=== PATIENT | female | born 1970 | race Two or more races ===

== ENCOUNTER 2019-03-21 05:31 | Inpatient (IN) | payer BC ==
[2019-03-21] MEDS ORDERED: ROPIVACAINE 0.5 % 30 ML VIAL (07:31)
[2019-03-21] MEDS ORDERED: ONDANSETRON 4 MG INJ (07:31)
[2019-03-21] MEDS ORDERED: METOCLOPRAMIDE 10 MG INJ (07:31)
[2019-03-21] MEDS ORDERED: PROPOFOL 20 ML (07:31)
[2019-03-21] MEDS ORDERED: MIDAZOLAM 1 MG/ML 2 ML INJ (07:31)
[2019-03-21] MEDS ORDERED: ROCURONIUM 50 MG INJ ×2 (07:31→08:33)
[2019-03-21] MEDS ORDERED: CEFAZOLIN 1 GM INJ (07:31)
[2019-03-21] MEDS ORDERED: METOPROLOL 5 MG INJ (07:50)
[2019-03-21] MEDS ORDERED: FENTAnyl 50 MCG/ML VIAL IV ×3 (08:00)
[2019-03-21] MEDS ORDERED: LABETALOL HCL 20MG INJ IV (08:00)
[2019-03-21] MEDS ORDERED: HYDROmorphONE 1 MG/5 ML IV SYRINGE IV (08:00)
[2019-03-21] MEDS ORDERED: KETOROLAC 30 MG INJ IV (08:00)
[2019-03-21] MEDS ORDERED: DIPHENHYDRAMINE 50 MG INJ IV (08:00)
[2019-03-21] MEDS ORDERED: FENTAnyl 50 MCG/ML VIAL (08:50)
[2019-03-21] MEDS ORDERED: KETOROLAC 30 MG INJ (09:11)
[2019-03-21] MEDS: ONDANSETRON 4 MG INJ IV ×3 (09:38→23:48)
[2019-03-21] MEDS: MEPERIDINE 25 MG INJ IV (09:38)
[2019-03-21] MEDS: CEFAZOLIN 2 GM/50 ML (PMX) 50 ML IVPB (09:40)
[2019-03-21] MEDS: SOD CHLORIDE 0.9% 1,000 ML IV (09:43)
[2019-03-21] MEDS: hydrALAzine 20 MG INJ IV (09:46)
[2019-03-21] MEDS: HYDROmorphONE 1 MG/5 ML IV SYRINGE IV ×2 (09:59→10:12)
[2019-03-21] MEDS ORDERED: HYDROmorphONE 2 MG/ML SYG IV (10:00)
[2019-03-21] MEDS: LACTATED RINGER'S 1,000 ML IV ×3 (15:09→23:35)
[2019-03-21] MEDS: HYDROmorphONE 1 MG/ML SYG IV ×2 (15:10→23:50)
[2019-03-22] MEDS: ONDANSETRON 4 MG INJ IV (05:00)
[2019-03-22] MEDS: HYDROmorphONE 1 MG/ML SYG IV (05:02)
[2019-03-22 05:26] LABS: ADD MAN DIFF? NO
[2019-03-22 05:30] LABS: WHITE BLOOD COUNT 11.6 10^3/ul (4.8-10.8)
[2019-03-22 05:30] LABS: BASOPHILS % 0.2 % (0.0-2.0); EOSINOPHILS % 0.1 % (0.0-7.0); HEMATOCRIT 31.9 % (37.0-47.0); HEMOGLOBIN 10.8 g/dl (12.0-16.0); LYMPHOCYTES # 1.2 10^3/ul (0.8-2.9); LYMPHOCYTES % 10.5 % (15.0-51.0); MEAN CORPUSCULAR HGB CONC 33.9 g/dl (32.0-37.0); MEAN CORPUSCULAR VOLUME 85.5 fl (82.0-101.0); MEAN PLATELET VOLUME 10.3 fl (7.4-10.4); MONOCYTES % 8.7 % (0.0-11.0); NEUTROPHIL # 9.3 10^3/ul (1.6-7.5); NEUTROPHILS % 80.1 % (39.0-77.0); PLATELET COUNT 193 10^3/UL (140-415); RED BLOOD COUNT 3.73 10^6/ul (4.20-5.40); RED CELL DISTRIBUTION WIDTH 12.5 % (11.5-14.5)
[2019-03-22 05:42] LABS: ALANINE AMINOTRANSFERASE 48 IU/L (13-69); ALBUMIN 3.6 g/dl (3.3-4.9); ALBUMIN/GLOBULIN RATIO 1.38; ALKALINE PHOSPHATASE 55 IU/L (42-121); ANION GAP 8 (5-13); ASPARTATE AMINO TRANSFERASE 31 IU/L (15-46); BILIRUBIN,INDIRECT 0.6 mg/dl (0-1.1); BILIRUBIN,TOTAL 0.6 mg/dl (0.2-1.3); BLOOD UREA NITROGEN 9 mg/dl (7-20); CALCIUM 8.4 mg/dl (8.4-10.2); CARBON DIOXIDE 29 mmol/L (21-31); CHLORIDE 103 mmol/L (97-110); Estimated GFR > 60 mL/min (>60); GLUCOSE 128 mg/dl (70-220); POTASSIUM 3.3 mmol/L (3.5-5.1); SODIUM 140 mmol/L (135-144); TOTAL PROTEIN 6.2 g/dl (6.1-8.1)
[2019-03-22] MEDS: MAGNESIUM HYDROXIDE 30ML CUP PO ×2 (05:53→17:48)
[2019-03-22] MEDS: BISACODYL 10 MG SUPP PR ×2 (05:55→17:49)
[2019-03-22] MEDS: LACTATED RINGER'S 1,000 ML IV ×2 (10:38→18:43)
[2019-03-22] MEDS: IBUPROFEN 800 MG TAB PO (12:36)
[2019-03-22] MEDS: HYDROCODONE/APAP (5/325) TAB PO ×2 (15:28→20:03)
[2019-03-23] MEDS: LACTATED RINGER'S 1,000 ML IV ×4 (00:31→18:16)
[2019-03-23] MEDS: HYDROCODONE/APAP (5/325) TAB PO ×5 (01:49→19:53)
[2019-03-23 05:04] LABS: ADD MAN DIFF? NO
[2019-03-23 05:13] LABS: BASOPHILS % 0.4 % (0.0-2.0); EOSINOPHILS # 0.1 10^3/ul (0.0-0.5); EOSINOPHILS % 1.9 % (0.0-7.0); HEMATOCRIT 27.2 % (37.0-47.0); LYMPHOCYTES # 1.4 10^3/ul (0.8-2.9); MEAN CORPUSCULAR HEMOGLOBIN 29.1 pg (29.0-33.0); MEAN CORPUSCULAR HGB CONC 33.1 g/dl (32.0-37.0); MEAN PLATELET VOLUME 10.1 fl (7.4-10.4); MONOCYTE # 0.6 10^3/ul (0.3-0.9); MONOCYTES % 8.3 % (0.0-11.0); NEUTROPHIL # 5.1 10^3/ul (1.6-7.5); PLATELET COUNT 146 10^3/UL (140-415); RED BLOOD COUNT 3.09 10^6/ul (4.20-5.40); RED CELL DISTRIBUTION WIDTH 12.5 % (11.5-14.5)
[2019-03-23 05:13] LABS: WHITE BLOOD COUNT 7.3 10^3/ul (4.8-10.8)
[2019-03-23] MEDS: IBUPROFEN 800 MG TAB PO (13:39)
[2019-03-23] MEDS: ONDANSETRON 4 MG INJ IV (14:23)
[2019-03-23] MEDS ORDERED: NON-FORMULARY/PATIENT OWN MED (Losartan-Hydrochlorothiazide (Losartan-HCTZ) 1 TAB) ORAL (21:00)
[2019-03-23] MEDS: LOSARTAN 50 MG TAB PO (21:17)
[2019-03-23] MEDS: AMLODIPINE 5 MG TAB PO (21:17)
[2019-03-23] MEDS: HYDROCHLOROTHIAZIDE 12.5 MG CAP PO (21:17)
[2019-03-24] MEDS: HYDROCODONE/APAP (5/325) TAB PO ×4 (01:50→15:01)
[2019-03-24] MEDS: LACTATED RINGER'S 1,000 ML IV (03:22)
[2019-03-24 08:09] LABS: ADD MAN DIFF? NO
[2019-03-24] MEDS: HYDROCHLOROTHIAZIDE 12.5 MG CAP PO (08:15)
[2019-03-24] MEDS: LOSARTAN 50 MG TAB PO (08:15)
[2019-03-24] MEDS: AMLODIPINE 5 MG TAB PO (08:15)
[2019-03-24 08:24] LABS: BASOPHILS % 0.4 % (0.0-2.0); EOSINOPHILS # 0.2 10^3/ul (0.0-0.5); EOSINOPHILS % 3.6 % (0.0-7.0); HEMATOCRIT 27.8 % (37.0-47.0); HEMOGLOBIN 9.2 g/dl (12.0-16.0); LYMPHOCYTES # 0.9 10^3/ul (0.8-2.9); MEAN CORPUSCULAR HEMOGLOBIN 28.8 pg (29.0-33.0); MEAN CORPUSCULAR HGB CONC 33.1 g/dl (32.0-37.0); MEAN CORPUSCULAR VOLUME 87.1 fl (82.0-101.0); MEAN PLATELET VOLUME 10.7 fl (7.4-10.4); MONOCYTE # 0.5 10^3/ul (0.3-0.9); MONOCYTES % 7.2 % (0.0-11.0); NEUTROPHIL # 5.1 10^3/ul (1.6-7.5); NEUTROPHILS % 75.7 % (39.0-77.0); PLATELET COUNT 153 10^3/UL (140-415); RED BLOOD COUNT 3.19 10^6/ul (4.20-5.40); RED CELL DISTRIBUTION WIDTH 12.4 % (11.5-14.5)
[2019-03-24 08:24] LABS: WHITE BLOOD COUNT 6.8 10^3/ul (4.8-10.8)
[2019-03-24] MEDS: IBUPROFEN 800 MG TAB PO (12:49)
[2019-03-24] MEDS: ONDANSETRON 4 MG TAB PO (13:13)
== END 2019-03-24 19:50 | disposition home or self-care (01) | DRG 743 ==
LOC: REC 05:31 → MS1 10:24
PROVIDERS: Obstetrics & Gynecology
PROC: 0UT90ZL Resection of Uterus, Supracervical, Open Approach (ICD-10-PCS; principal; 2019-03-21 07:20)
PROC: 0UT70ZZ Resection of Bilateral Fallopian Tubes, Open Approach (ICD-10-PCS; 2019-03-21 07:20)
PROC: 0UT20ZZ Resection of Bilateral Ovaries, Open Approach (ICD-10-PCS; 2019-03-21 07:20)
PROC: 0USG0ZZ Reposition Vagina, Open Approach (ICD-10-PCS; 2019-03-21 07:20)
PROC: 0TNB0ZZ Release Bladder, Open Approach (ICD-10-PCS; 2019-03-21 07:20)
PROC: 0DNU0ZZ Release Omentum, Open Approach (ICD-10-PCS; 2019-03-21 07:20)
PROC: 0HB7XZZ Excision of Abdomen Skin, External Approach (ICD-10-PCS; 2019-03-21 07:20)
DX: D25.9 Leiomyoma of uterus, unspecified (principal); N80.0 Endometriosis of uterus; N92.0 Excessive and frequent menstruation with regular cycle; N81.89 Other female genital prolapse; N73.6 Female pelvic peritoneal adhesions (postinfective); D50.0 Iron deficiency anemia secondary to blood loss (chronic); E03.9 Hypothyroidism, unspecified; G89.29 Other chronic pain; R10.2 Pelvic and perineal pain; I10 Essential (primary) hypertension
CPT/HCPCS: 80053; 84702; 85025; 86850; 86900; 86901; 87086; 88305